=== PATIENT | female | born 1985 | race Caucasian/White ===

== ENCOUNTER 2017-05-23 16:10 | Emergency (ER) | payer OTHER ==
[2017-05-23] MEDS ORDERED: NS 500 ML IV ONE (16:27)
--- NOTE | 2017-05-23 16:34 | EDPHY ---
H & P Time Seen by Provider: 05/23/17 16:21 HPI/ROS: HPI Palpitations, chest tightness. 31-year-old female from Urgent Care. This patient reports that for the last several months she has had intermittent palpitations. She describes this as her heart racing. She reports that sometimes it wakes her up at night. She also states that over the last week she has had a sensation of chest tightness and pressure. She reports that this comes and goes. She has several episodes of this per day lasting several minutes at a time. She does not have any significant past medical history. She was seen at an urgent care and told to come here for evaluation. ROS: Constitutional: No fever, no chills. No weakness. Eyes: No discharge. No changes in vision. ENT: No sore throat. No nasal congestion or rhinorrhea. Respiratory: No cough. No shortness of breath. Cardiac: As above. Gastrointestinal: No abdominal pain, no vomiting, no diarrhea. Genitourinary: No hematuria. No dysuria or increased frequency with urination. Musculoskeletal: No back pain. No neck pain. No myalgias or arthralgias. Skin: No rashes. Neurological: No headache. No focal weakness or altered sensation. Past medical history: Denies any significant past medical history. Social history: Nonsmoker. Works here in [place]. Lives in [place]. Social alcohol. Smokes marijuana occasionally. No IV drugs or street drugs. Drinks moderate caffeine. Physical Exam: General Appearance: Alert, no distress, mildly anxious. This patient is responding to questions appropriately and in full sentences. This patient appears well-hydrated and well-nourished. Eyes: Pupils equal and round no pallor or injection. No lid edema, erythema or injection. Respiratory: There are no retractions, lungs are clear to auscultation with good air movement bilaterally. Cardiovascular: Regular rate and rhythm. No murmur. Gastrointestinal: Abdomen is soft and nontender, no masses, bowel sounds normal. No focal tenderness at McBurney's point. No Li sign. Neurological: Motor sensory function is grossly intact. Cranial nerves are normal. Gait is normal. Skin: Warm and dry, no rashes. Musculoskeletal: Neck is supple and nontender. Extremities are symmetrical. All joints range without pain or impingement. Psychiatric: No agitation. No depression. Database: EKG: EKG time is 4:31 p.m.; EKG shows a narrow complex normal sinus rhythm with a ventricular rate of 80. The IA, QRS, QT intervals are within normal limits. There are no ST-T wave changes indicative of ischemic or injury pattern. No evidence of right heart strain. No evidence of WPW, Brugada syndrome, hypertrophic cardiomyopathy. Interpreted by me. Imaging: Chest x-ray PA and lateral; the cardiac mediastinal silhouette is unremarkable. No evidence of infiltrate or pneumothorax. No acute cardiopulmonary disease process noted. Interpreted by me. Procedures: Emergency department course: Vital signs reviewed and are normal. IV placed. She was placed on a monitor. EKG obtained and reviewed by myself. 5:40 p.m., patient re-evaluated. 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 Pulse oximetry is 99% on room air. Blood pressure 110/73. Resting comfortably at this time. Her diagnostic workup has been reassuring. Results of her tests discussed with her. She feels comfortable going home at this time and I feel she is safe for discharge. Follow-up and return to emergency department precautions reviewed with her. All of her questions were answered. She was discharged in good condition. Differential Diagnosis: The differential diagnosis on this patient includes but is not limited to PACs, PVCs, anxiety reaction. Acute coronary syndrome, WPW, Brugada syndrome, SVT, AFib, ventricular tachycardia, pulmonary embolism, hyperthyroid unlikely. This represents a partial list of diagnoses considered. These considerations are based on history, physical exam, past history, reassessment and diagnostic testing. Smoking Status: Never smoked Constitutional: Initial Vital Signs Temperature (C) 36.8 C 05/23/17 16:13 Heart Rate 85 05/23/17 16:13 Respiratory Rate 18 05/23/17 16:13 Blood Pressure 121/86 H 05/23/17 16:13 O2 Sat (%) 99 05/23/17 16:13 O2 Delivery Mode Room Air Allergies/Adverse Reactions: No Known Allergies Allergy (Unverified 05/23/17 16:13) Home Medications: Medication Instructions Recorded NK [No Known Home Meds] 05/23/17 Medical Decision Making - Diagnostics Imaging Results: Imaging Impressions Chest X-Ray 05/23/17 16:27 Impression: Normal. - Data Points Laboratory Results: Laboratory Results 05/23/17 16:30 18 16:30 18 18 05/23/17 16:30 16:30 16:30 WBC 10.97 10^3/uL H 10^3/uL (3.80-9.50) RBC 4.86 10^6/uL 10^6/uL (4.18-5.33) Hgb 15.5 g/dL g/dL (12.6-16.3) Hct 45.5 % % (38.0-47.0) MCV 93.6 fL fL (81.5-99.8) MCH 31.9 pg pg (27.9-34.1) MCHC 34.1 g/dL g/dL (32.4-36.7) RDW 11.9 % % (11.5-15.2) Plt Count 295 10^3/uL 10^3/uL (150-400) MPV 10.6 fL fL (8.7-11.7) Neut % (Auto) 67.7 % % (39.3-74.2) Lymph % (Auto) 23.9 % % (15.0-45.0) [place] % (Auto) 6.4 % % (4.5-13.0) Eos % (Auto) 1.2 % % (0.6-7.6) Baso % (Auto) 0.6 % % (0.3-1.7) Nucleat RBC Rel Count 0.0 % % (0.0-0.2) Absolute Neuts (auto) 7.43 10^3/uL H 10^3/uL (1.70-6.50) Absolute Lymphs (auto) 2.62 10^3/uL 10^3/uL (1.00-3.00) Absolute Monos (auto) 0.70 10^3/uL 10^3/uL (0.30-0.80) Absolute Eos (auto) 0.13 10^3/uL 10^3/uL (0.03-0.40) Absolute Basos (auto) 0.07 10^3/uL 10^3/uL (0.02-0.10) Absolute Nucleated RBC 0.00 10^3/uL 10^3/uL (0-0.01) Immature Gran % 0.2 % % (0.0-1.1) Immature Gran # 0.02 10^3/uL 10^3/uL (0.00-0.10) Sodium 144 mEq/L mEq/L (135-145) Potassium 3.5 mEq/L mEq/L (3.5-5.2) Chloride 103 mEq/L mEq/L (97-110) Carbon Dioxide 29 mEq/l mEq/l (22-31) Anion Gap 12 mEq/L mEq/L (8-16) BUN 9 mg/dL mg/dL (7-23) Creatinine 0.6 mg/dL mg/dL (0.6-1.0) Estimated GFR > 60 Glucose 91 mg/dL mg/dL (70-100) Calcium 9.8 mg/dL mg/dL (8.5-10.4) Troponin I < 0.012 ng/mL ng/mL (0.000-0.034) TSH 1.820 uIU/mL uIU/mL (0.465-4.680) Beta HCG, Qual NEGATIVE Medications Given: Discontinued Medications Sodium Chloride (Ns) 500 mls @ 1,000 mls/hr IV EDNOW ONE PRN Reason: Protocol Stop: 05/23/17 16:56 Last Admin: 05/23/17 16:38 Dose: 500 mls Departure - Departure Disposition: Home, Routine, Self-Care Clinical Impression: Palpitations, Chest discomfort Condition: Good Instructions: Heart Palpitations (DC) Additional Instructions: Read and follow provided instructions. Follow-up with your primary care physician in 1-2 days for re-evaluation. Avoid caffeinated beverages or energy drinks. Keep well hydrated. Drink lots of fluids. Return to the emergency department for worsening chest pain, shortness of breath , palpitations or elevated heart rate or other serious concerns. Referrals: JULIANE DURAN [Other] - As per Instructions
--- NOTE | 2017-05-23 16:35 | CPEKG ---
Heart Rate: 80 RR Interval: 750 P-R Interval: 136 QRSD Interval: 88 QT Interval: 404 QTC Interval: 466 P Meridian: 68 QRS Meridian: 73 T Wave Mer[place]: 14 EKG Severity - NORMAL ECG - EKG Impression: SINUS RHYTHM Electronically Signed By: Noel Woods 23-May-2017 22:11:31
[2017-05-23 16:41] LABS: PLATELET COUNT 295 10^3/uL (150-400)
[2017-05-23 17:53] VITALS: BP 122/78
== END 2017-05-23 17:53 | disposition home or self-care (01) ==
DX: R00.2 Palpitations (principal); R07.89 Other chest pain; E86.9 Volume depletion, unspecified